=== PATIENT | female | born 1970 | race African-American/Black ===

== ENCOUNTER 2020-09-11 11:45 | Emergency (ER) | payer MEDICARE, MEDICAID ==
[~2020-09-11] VITALS: Ht 170.2 cm; Wt 86.2 kg
[2020-09-11 11:55] VITALS: BP 171/110
[2020-09-11] MEDS ORDERED: SODIUM BICARBONATE 8.4% INJ 50ML SYRINGE ONE (17:26)
== END 2020-09-11 14:37 | disposition home or self-care (01) ==
LOC: ER 11:45
DX: T78.40XA Allergy, unspecified, initial encounter (principal); E78.5 Hyperlipidemia, unspecified; I10 Essential (primary) hypertension; I25.2 Old myocardial infarction; Z86.73 Personal history of transient ischemic attack (TIA), and cerebral infarction without residual deficits; X58.XXXA Exposure to other specified factors, initial encounter

== ENCOUNTER 2021-06-21 16:40 | Emergency (ER) | payer MEDICAID, MEDICARE ==
[~2021-06-21] VITALS: Ht 162.6 cm; Wt 89.4 kg
[2021-06-21 17:28] VITALS: BP 155/94
[2021-06-21] MEDS ORDERED: KETOROLAC TROMETH 60MG/2ML VIAL IM ONE (17:45)
== END 2021-06-21 18:16 | disposition home or self-care (01) ==
LOC: ER 16:40
DX: M75.81 Other shoulder lesions, right shoulder (principal); E78.5 Hyperlipidemia, unspecified; I10 Essential (primary) hypertension; Z87.820 Personal history of traumatic brain injury
CPT/HCPCS: 73030; 96372; 99283; J1885

== ENCOUNTER 2021-07-10 08:29 | Emergency (ER) | payer MEDICARE ==
[~2021-07-10] VITALS: Ht 162.6 cm; Wt 90.7 kg
[2021-07-10 08:31] VITALS: BP 144/104
== END 2021-07-10 09:59 | disposition left against medical advice (07) ==
LOC: ER 08:29
DX: S61.213A Laceration without foreign body of left middle finger without damage to nail, initial encounter (principal); Z53.21 Procedure and treatment not carried out due to patient leaving prior to being seen by health care provider; W25.XXXA Contact with sharp glass, initial encounter; Y93.89 Activity, other specified; Y92.89 Other specified places as the place of occurrence of the external cause; Y99.8 Other external cause status
CPT/HCPCS: 73140

== ENCOUNTER 2021-11-02 11:02 | Emergency (ER) | payer MEDICARE, MEDICAID, OTHER ==
[~2021-11-02] VITALS: Ht 165.1 cm; Wt 92.1 kg
[2021-11-02] MEDS ORDERED: cloNIDine HCL 0.1 MG TAB PO ONE (11:15)
[2021-11-02 11:37] VITALS: BP 160/110
== END 2021-11-02 12:20 | disposition home or self-care (01) ==
LOC: ER 11:02
DX: S90.455A Superficial foreign body, left lesser toe(s), initial encounter (principal); I10 Essential (primary) hypertension; I25.2 Old myocardial infarction; E78.5 Hyperlipidemia, unspecified; Z86.73 Personal history of transient ischemic attack (TIA), and cerebral infarction without residual deficits; Z90.710 Acquired absence of both cervix and uterus; X58.XXXA Exposure to other specified factors, initial encounter; Y93.89 Activity, other specified; Y92.89 Other specified places as the place of occurrence of the external cause; Y99.8 Other external cause status

== ENCOUNTER 2022-08-22 12:18 | Emergency (ER) | payer MEDICARE, OTHER ==
[~2022-08-22] VITALS: Ht 162.6 cm; Wt 86.0 kg
[2022-08-22 12:18] VITALS: BP 200/110
[2022-08-22] MEDS ORDERED: cloNIDine HCL 0.1 MG TAB PO ONE (12:30)
[2022-08-22 13:18] LABS: Anion Gap 6 (5-15); Blood Urea Nitrogen 6 mg/dL (7-18); Carbon Dioxide 30 mmol/L (21-32); Chloride 105 mmol/L (98-107); Glucose 89 mg/dL (74-106); Potassium 3.7 mmol/L (3.5-5.1); Sodium 141 mmol/L (136-145)
[2022-08-22 13:19] LABS: BUN/Creatinine Ratio 7.7; Blood Alcohol < 3.0 mg/dL (0-5); GFR African American 100 mL/min; GFR Non-African American 83 mL/min
[2022-08-22 13:26] LABS: Neutrophils % (auto) 51.8 % (37.0-80.0); White Blood Cell 6.1 10^3/uL (4.4-10.8)
[2022-08-22 13:27] LABS: Basophils % (auto) 1.1 % (0.0-2.0); Eosinophils % (auto) 5.2 % (0.0-7.0); Lymphocytes # (auto) 2.3 10 ^3/uL (0.4-5.4); Monocytes # (auto) 0.3 10 ^3/uL (0-1.3); Monocytes % (auto) 4.9 % (0.0-12.0); Neutrophils # (auto) 3.2 10 ^3/uL (1.6-8.6); Nucleated Red Blood Cells % 0.2 %
[2022-08-22 13:28] LABS: Basophils # (auto) 0.1 10 ^3/uL (0-0.2); Eosinophils # (auto) 0.3 10 ^3/uL (0-0.8); Hematocrit 38.8 % (36.0-46.0); Red Blood Cells 4.83 10^6/uL (4.0-5.20)
[2022-08-22 13:29] LABS: Mean Corpuscular Hemoglobin 24.9 pg (28.0-32.0); Mean Corpuscular Hgb Conc. 31.1 g/dL (32.0-36.0); Mean Corpuscular Volume 80.2 fL (80.0-100.0); Red Cell Distribution Width 15.8 % (11.8-14.3)
[2022-08-22] MEDS ORDERED: ACETAMINOPHEN 325 MG TAB PO ONE (13:45)
[2022-08-22 16:32] LABS: Alcohol, Urine < 3.0 mg/dL (0-10); Amphetamine Screen, Urine POSITIVE (NEGATIVE); Barbiturate Scree,Urine NEGATIVE (NEGATIVE); Benzodiazephine Screen, Urine NEGATIVE (NEGATIVE); Cannabinoid Screen, Urine NEGATIVE (NEGATIVE); Cocaine Screen, Urine NEGATIVE (NEGATIVE); Phencyclidine Screen, Urine NEGATIVE (NEGATIVE)
[2022-08-22 16:39] LABS: Opiate Scree,Urine NEGATIVE (NEGATIVE)
== END 2022-08-22 15:42 | disposition left against medical advice (07) ==
LOC: EDBD 12:18 → ER 12:18
DX: I16.0 Hypertensive urgency (principal); R45.851 Suicidal ideations; I25.2 Old myocardial infarction; E78.5 Hyperlipidemia, unspecified; F17.210 Nicotine dependence, cigarettes, uncomplicated; Z86.73 Personal history of transient ischemic attack (TIA), and cerebral infarction without residual deficits; Z90.710 Acquired absence of both cervix and uterus
CPT/HCPCS: 36415; 80048; 80307; 80320; 85025; 93005

== ENCOUNTER 2024-03-19 20:50 | Emergency (ER) | payer OTHER, MEDICAID | END 2024-03-19 21:21 | disposition left against medical advice (07) | LOC: ER 20:50 | DX: R06.02 Shortness of breath (principal); Z53.21 Procedure and treatment not carried out due to patient leaving prior to being seen by health care provider ==